=== PATIENT | male | born 1965 | race Caucasian/White ===

== ENCOUNTER → 2018-11-17 | Outpatient (CLI) | payer OTHER ==
--- NOTE | 2018-11-18 08:34 | REP ---
MAXILLOFACIAL CT WITHOUT CONTRAST: HISTORY: Chronic sinusitis. Minimal mucosal thickening is present in the right maxillary and left frontal sinuses. A small retention cyst is present in the left maxillary sinus. The remaining sinuses are clear. The ostiomeatal units are patent. The middle and inferior nasal turbinates are partially paradoxical. There is moderate deviation of the nasal septum to the left. The cribriform plate, medial houser of the orbits, and optic canals are intact. The carotid canals form a segment of the posterolateral houser of the sphenoid sinus. The right sphenoid sinus septum inserts into the right internal carotid canal wall. IMPRESSION: 1. Sinus mucosal thickening as described above. 2. Left maxillary sinus retention cyst. Electronically Signed by Daniel Hurtado MD 11/18/2018 08:35 A
== END ==
LOC: M RAD 16:39
PROVIDERS: ATTEND Family Medicine
DX: J32.0 Chronic maxillary sinusitis (principal); J34.1 Cyst and mucocele of nose and nasal sinus

== ENCOUNTER 2019-08-30 10:20 | Day surgery (SDC) | payer OTHER ==
[~2019-08-30] VITALS: Ht 172.7 cm; Wt 99.3 kg
[~2019-08-30 10:20] MED LIST: BENA25CA4 PO; CETI10CH PO; FAMO20TA PO; FISH1000 PO; L-LY500T9 PO; MAGN400T3 PO; MELA10TA6 PO; MULTCAP PO; NAPR-885 PO; NS 1,000 ML IV ONE; VITA500T PO; VITATAB73 PO
[2019-08-30] MEDS ORDERED: propofoL 200 MG/20 ML VIAL As Ordered ONE ×2 (12:21→12:27)
[2019-08-30] MEDS ORDERED: LIDOCAINE 2% INJ 100 MG/5 ML SDV (FOR ANES.) As Ordered ONE (12:21)
--- NOTE | 2019-08-30 13:13 | ROOR ---
Patient Name: Ha Morales Procedure Date: 08/30/2019 12:18 PM Date of : 1965 Age: 54 Room: [facility] Gender: Male Note Status: Finalized Procedure: Upper Endoscopy + Biopsies Indications: Heartburn, Exclusion of Abdi's esophagus Providers: Servando Casanova MD Referring MD: Chad Deng Requesting Provider: Medicines: Monitored Anesthesia Care Complications: No immediate complications. Procedure: Pre-Anesthesia Assessment: - The heart rate, respiratory rate, oxygen saturations, blood pressure, adequacy of pulmonary ventilation, and response to care were monitored throughout the procedure. The Endoscope was introduced through the mouth, and advanced to the second part of duodenum. The upper GI endoscopy was accomplished without difficulty. The patient tolerated the procedure well. Findings: The Z-line was regular and was found 40 cm from the incisors. Multiple biopsies were obtained with cold forceps for evaluation to rule out Abdi's Esophagus randomly at the gastroesophageal junction. A small hiatal hernia was present. Localized mild inflammation characterized by congestion (edema) and erythema was found in the gastric antrum. Biopsies were taken with a cold forceps for Helicobacter pylori testing. The exam of the duodenum was otherwise normal. Impression: - Z-line regular, 40 cm from the incisors. - Small hiatal hernia. - Mucosal changes suspicious for gastritis. Biopsied. - Multiple biopsies were obtained at the gastroesophageal junction. - The examination was otherwise normal. Recommendation: - Patient has a contact number available for emergencies. The signs and symptoms of potential delayed complications were discussed with the patient. Return to normal activities tomorrow. Written discharge instructions were provided to the patient. - High fiber diet. - Discharge patient to home. - Follow an antireflux regimen. - Continue present medications. - Await pathology results. - Telephone GI clinic for pathology results in 1 week. - Return to referring physician. - The findings and recommendations were discussed with the patient's family. Servando Casanova MD Servando Casanova MD 08/30/2019 1:13:05 PM Electronically signed by Servando Casanova MD Number of Addenda: 0 Note Initiated On: 08/30/2019 12:18 PM Estimated Blood Loss: Estimated blood loss: none.
[2019-08-30 13:20] VITALS: BP 136/75
== END 2019-08-30 13:28 | disposition home or self-care (01) ==
LOC: M OPP 10:20
PROVIDERS: ATTEND Internal Medicine Gastroenterology
DX: K44.9 Diaphragmatic hernia without obstruction or gangrene (principal); K31.89 Other diseases of stomach and duodenum; K29.50 Unspecified chronic gastritis without bleeding; K21.9 Gastro-esophageal reflux disease without esophagitis; K58.2 Mixed irritable bowel syndrome; G47.30 Sleep apnea, unspecified